=== PATIENT | male | born 1985 | race Caucasian/White ===

== ENCOUNTER 2019-08-29 06:33 | Emergency (ER) | payer BC, SELFPAY ==
[2019-08-29] MEDS ORDERED: MORPHINE 4 MG/ML SYR ONE (07:18)
[2019-08-29] MEDS ORDERED: NA CHLORIDE 0.9% 1,000 ML ONE (07:18)
[2019-08-29] MEDS ORDERED: ONDANSETRON 4 MG/2 ML VIAL ONE (07:18)
[2019-08-29 07:41] LABS: Absolute Lymphocytes (CBC) 2.1 K/uL (0.7-4.9); Basophils % 0.4 % (0-1.3); Lymphocytes % 23.1 % (15.3-44.8); RBC Red Blood Cell Count 5.54 M/uL (4.33-5.43)
[2019-08-29 07:50] LABS: Potassium 3.7 mmol/L (3.5-5.1)
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
[2019-08-29] MEDS ORDERED: AZITHROMYCIN 250 MG TAB ONE (08:28)
[2019-08-29] MEDS ORDERED: KETOROLAC 30 MG/ML INJ ONE (08:35)
[2019-08-29] MEDS ORDERED: DIAZEPAM 5 MG TABLET ONE (08:40)
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
[2019-08-29 14:10] VITALS: O2SAT 99
[2019-08-29 14:11] VITALS: BP 125/87; TEMP 98
== END 2019-08-29 09:25 | disposition home or self-care (01) ==
LOC: ER 06:33
DX: S16.1XXA Strain of muscle, fascia and tendon at neck level, initial encounter (principal); S30.0XXA Contusion of lower back and pelvis, initial encounter; S00.01XA Abrasion of scalp, initial encounter; V48.0XXA Car driver injured in noncollision transport accident in nontraffic accident, initial encounter; Z88.0 Allergy status to penicillin; Z88.2 Allergy status to sulfonamides; F17.220 Nicotine dependence, chewing tobacco, uncomplicated
CPT/HCPCS: 36415; 70450; 71260; 72125; 74177; 80048; 85025; 86850; 86900; 86901; 96361; 96374; 96375; 99285; J2405; J7030; Q9967

== ENCOUNTER 2024-06-29 20:01 | Emergency (ER) | payer OTHER ==
[2024-06-29] MEDS ORDERED: NA CHLORIDE 0.9% 1,000 ML ONE (20:34)
[2024-06-29] MEDS ORDERED: KETOROLAC 30 MG/ML INJ ONE (20:34)
[2024-06-29] MEDS ORDERED: NA CHLORIDE 0.9% 50 ML ONE (20:36)
[2024-06-29] MEDS ORDERED: LIDOCAINE 1% 20 ML MDV ONE (20:36)
[2024-06-29] MEDS ORDERED: CEFTRIAXONE 1000 MG/VIAL ONE (20:36)
[2024-06-29 20:57] LABS: Albumin 3.8 g/dL (3.4-5.0); Anion Gap 9.4 mEq/L (5.0-15.0); Bilirubin Total 0.4 mg/dL (0.2-1.0); Potassium 3.4 mEq/L (3.5-5.1); Protein, Total 7.8 g/dL (6.4-8.2)
[2024-06-29 21:11] LABS: Absolute Basophils 0.1 K/uL (0-0.5); Absolute Eosinophils 0.3 K/uL (0-0.5); Absolute Lymphocytes (CBC) 2.6 K/uL (0.7-4.9); Absolute Neutrophil 7.9 K/uL (1.8-8.0); Basophils % 0.4 % (0-1.3); Eosinophils % 2.5 % (0-4.4); Hematocrit 42.6 % (39.6-49.0); Hemoglobin 14.9 g/dL (13.6-17.9); Lymphocytes % 21.7 % (15.3-44.8); MCH 28.3 pg (27.0-35.0); MCHC 34.9 g/dL (32.0-36.0); MCV 81.2 fL (80-100); MPV 7.4 fL (7.6-11.3); Monocytes % 8.3 % (3.3-12.3); Neutrophils % 67.1 % (41.7-73.7); Nucleated Red Blood Cells % 0.1 % (0-0); Platelets 343 thou/uL (152-406); RBC Red Blood Cell Count 5.25 M/uL (4.33-5.43); Red Cell Distribution Width 13.5 % (12.1-15.2)
--- NOTE | 2024-06-29 22:36 | RAD REPORT ---
EXAMINATION: CT ABDOMEN AND PELVIS WITH CONTRAST CLINICAL INDICATION: Male, 39 years old. [facility] MAIN perianal abscess IV ONLY Bed Name: 5 TECHNIQUE: CT abdomen and pelvis was performed, after the administration of IV contrast, as per [facility] [employer] [facility] [employer] protocol. Axial, sagittal and coronal reconstructions were obtained. One or more of the following dose reduction techniques were used: Automated exposure control, adjustment of the mA and k V according to patient size, and iterative reconstruction. Unless otherwise specified, incidental findings do not require dedicated imaging follow-up. COMPARISON: 11/20/2008 FINDINGS: LOWER CHEST: The visualized lung bases are clear. LIVER: Normal in size and contour. No focal lesion. Gallbladder is contracted limiting evaluation. SPLEEN: Normal size. No focal lesion. PANCREAS: No mass, ductal dilation, or sly-pancreatic fluid. ADRENALS: Normal; no mass. KIDNEYS: Normal size and contour. No hydronephrosis. Urinary bladder appears unremarkable. GASTROINTESTINAL TRACT: No evidence of free air, significant intra-abdominal free fluid, bowel obstru ction or abscess. APPENDIX: Normal appendix. LYMPH NODES: No lymphadenopathy. MUSCULOSKELETAL: No acute or suspicious osseous abnormality. ADDITIONAL FINDINGS: In the midline along the gluteal cleft, and ovoid fluid collection measuring 3.0 x 2.2 cm is noted, with some adjacent fat stranding. No other suspicious paramidline soft tissue tracts. IMPRESSION: A 3.0 cm fluid collection with adjacent inflammatory changes is present along the left inferiorly, moreland ggesting a small abscess. No other suspicious soft tissue tracts or abnormal collections identified.
[2024-06-29] MEDS ORDERED: HYDROCODONE/APAP 10/325 TAB ONE (23:05)
--- NOTE | 2024-06-29 23:29 | ER ---
Nurse's Notes [facility] Name: Peter Hernandez Age: 39 yrs Sex: Male : 1985 Arrival Date: 06/29/2024 Time: 20:01 Bed 5 Private MD: Diagnosis: Cutaneous abscess of buttock;New onset diabetes mellitus type 2 with hyperglycemia Presentation: 06/29 20:12 Chief complaint: Patient states: Abscess to "base of tailbone" onset last week. cm10 Coronavirus screen: Client denies travel out of the [place] in the last 14 days. At this time, the client does not indicate any symptoms associated with coronavirus-19. Ebola Screen: Patient denies travel to an Ebola-affected area in the 21 days before illness onset. No symptoms or risks identified at this time. Initial Sepsis Screen: Does the patient meet any 2 criteria? HR > 90 bpm. Yes Does the patient have a suspected source of infection? No. Patient's initial sepsis screen is negative. Risk Assessment: Do you want to hurt yourself or someone else? Patient reports no desire to harm self or others. Onset of symptoms was June 29, 2024. 20:12 Method Of Arrival: Ambulatory cm10 20:12 Acuity: KARSTEN 4 cm10 Triage Assessment: 20:13 General: Appears in no apparent distress. comfortable, Behavior is calm, cooperative. cm10 Neuro: No deficits noted. Level of Consciousness is awake, alert, obeys commands, Oriented to person, place, time, situation, Appropriate for age. Respiratory: No deficits noted. Airway is patent Respiratory effort is even, unlabored, Respiratory pattern is regular, symmetrical. Historical: - Allergies: 20:13 PENICILLINS; cm10 20:13 Sulfa (Sulfonamide Antibiotics); cm10 - Home Meds: 20:13 None [Active]; cm10 - PMHx: 20:13 Asthma; cm10 - PSHx: 20:13 None; cm10 - Immunization history:: Adult Immunizations up to date. - Infectious Disease History:: Denies. - Social history:: Smoking status: Patient reports the use of cigarette tobacco products, denies chronic smoking, but will smoke occasionally, Reported history of juuling and/or vaping. - Family history:: not pertinent. Screenin:35 [facility] ED Fall Risk Assessment (Adult) History of falling in the last 3 months, dd2 including since admission No falls in past 3 months (0 pts) Confusion or Disorientation No (0 pts) Intoxicated or Sedated No (0 pts) Impaired Gait No (0 pts) Mobility Assist Device Used No (0 pt) Altered Elimination No (0 pt) Score/Fall Risk Level 0 - 2 = Low Risk Oriented to surroundings, Maintained a safe environment, Hourly rounding (assess needs \\T\\ fall precautionary measures) done. Abuse screen: Denies threats or abuse. Nutritional screening: No deficits noted. Tuberculosis screening: No symptoms or risk factors identified. Assessment: 20:35 General: Appears in no apparent distress. Behavior is calm, cooperative, appropriate dd2 for age. Pain: Complains of pain in gluteal cleft Pain currently is 7 out of 10 on a pain scale. Neuro: No deficits noted. Level of Consciousness is awake, alert, obeys commands, Oriented to person, place, time, situation, Appropriate for age. Cardiovascular: No deficits noted. Patient's skin is warm and dry. Respiratory: No deficits noted. Airway is patent Respiratory effort is even, unlabored, Respiratory pattern is regular, symmetrical. GI: No deficits noted. No signs and/or symptoms were reported involving the gastrointestinal system. Abdomen is non-distended. : No deficits noted. No signs and/or symptoms were reported regarding the genitourinary system. EENT: No deficits noted. No signs and/or symptoms were reported regarding the EENT system. Derm: Wound noted gluteal cleft Wound is TENDER, EDEMA NOTED Abscess located on gluteal cleft. Musculoskeletal: No deficits noted. No signs and/or symptoms reported regarding the musculoskeletal system. 22:19 Reassessment: Patient appears in no apparent distress at this time. No changes from al5 previously documented assessment. Patient and/or family updated on plan of care and expected duration. Pain level reassessed. Patient is alert, oriented x 3, equal unlabored respirations, skin warm/dry/pink. Vital Signs: 20:12 BP 133 / 88; Pulse 102; Resp 17; Temp 99(O); Pulse Ox 98% on R/A; Weight 113.4 kg; cm10 Height 5 ft. 10 in. ; Pain 7/10; 20:35 BP 125 / 76; Pulse 102; Resp 16; Pulse Ox 96% ; dd2 21:00 BP 129 / 84; Pulse 99; Resp 18; Pulse Ox 97% on R/A; al5 21:30 BP 125 / 77; Pulse 97; Resp 18; Pulse Ox 97% on R/A; al5 22:00 BP 125 / 75; Pulse 92; Resp 18; Pulse Ox 97% on R/A; al5 22:30 BP 119 / 75; Pulse 97; Resp 18; Pulse Ox 97% on R/A; al5 20:12 Body Mass Index 35.87 (113.40 kg, 177.8 cm) cm10 20:12 Pain Scale: Adult cm10 [employer] Coma Score: 06/30 20:52 Eye Response: spontaneous(4). Motor Response: obeys commands(6). Verbal Response: sp4 oriented(5). Total: 15. ED Course: 06/29 20:03 Patient arrived in ED. im 20:04 Allen Garcia MD is Attending Physician. sp4 20:13 Triage completed. cm10 20:13 Arm band placed on Patient placed in an exam room, on a stretcher. cm10 20:19 GERRY BOWLES, RN is Primary Nurse. dd2 20:34 CBC with Diff Sent. dd2 20:34 CMP Sent. dd2 20:35 Patient has correct armband on for positive identification. Bed in low position. Call dd2 light in reach. Side rails up X 1. Provided Education on: CALL LIGHT, MEDICATIONS, PROCEDURES. Client placed on continuous cardiac and pulse oximetry monitoring. NIBP monitoring applied. Door closed. Pillow given. Verbal reassurance given. 20:35 Initial lab(s) drawn, by me, sent to lab. Inserted saline lock: 20 gauge in right dd2 antecubital area, using aseptic technique. Blood collected. Flushed with 10 mL NS. 22:01 CT Abd/Pelvis - IV Contrast Only In Process Unspecified. EDMS 23:27 Rocky Woods MD is Referral Physician. sp4 23:28 Nikolas Aguiar MD is Referral Physician. sp4 23:50 Assist provider with I \\T\\ D: of an abscess on left pilonidal cyst Wound packed. iodoform al5 gauze, Dressing with 4X4s, tape Patient tolerated well. IV discontinued, intact, bleeding controlled, No redness/swelling at site. Pressure dressing applied. Administered Medications: 20:45 Drug: NS 0.9% IV 1000 ml IV at 1 bolus Per protocol; 1000 mL bolus Route: IV; Rate: 1 al5 bolus; Site: right antecubital; 23:44 Follow up: Response: No adverse reaction; IV Status: Completed infusion; IV Intake: al5 1000ml 20:45 Drug: Ketorolac IVP 30 mg IVP once Route: IVP; Site: right antecubital; al5 23:36 Follow up: Response: No adverse reaction; Pain is unchanged, physician notified al5 20:46 Drug: Rocephin - Rocephin (cefTRIAXone) IVPB 1 grams IVPB once over 30 mins; (mix in 50 al5 mL NS) Route: IVPB; Infused Over: 30 mins; Site: right antecubital; 23:43 Follow up: Response: No adverse reaction; IV Status: Completed infusion; IV Intake: 37gphs5 23:09 Drug: HYDROcodone-acetaminophen PO 10 mg-325 mg 1 tabs PO once Route: PO; al5 23:36 Follow up: Response: No adverse reaction; Pain is decreased al5 23:10 Drug: Lidocaine Infiltration (1 %) 40 ml 20 ml Infiltration once; to bedside {Note: al5 given by md.} Volume: 20 ml; Route: Infiltration; 23:44 Follow up: Response: No adverse reaction al5 Medication: 20:35 VIS not applicable for this client. dd2 Intake: 23:43 IV: 50ml; Total: 50ml. al5 23:44 IV: 1000ml; Total: 1050ml. al5 Outcome: 23:29 Discharge ordered by . sp4 23:50 Discharged to home ambulatory, with significant other, al5 23:50 Condition: good 23:50 Discharge instructions given to patient, significant other, Instructed on discharge instructions, follow up and referral plans. medication usage, Demonstrated understanding of instructions, follow-up care, medications, Prescriptions given X 4, 23:51 Patient left the ED. al5 Signatures: Dispatcher [employer] EDMS Allen Garcia MD MD sp4 Merced Norris Clarissa, RN RN cm10 Karen Matthews RN RN al5 GERRY BOWLES RN RN dd2
--- NOTE | 2024-06-29 23:29 | EDPHYS ---
Physician Documentation [facility] Name: Peter Hernandez Age: 39 yrs Sex: Male : 1985 Arrival Date: 06/29/2024 Time: 20:01 Bed 5 Private MD: ED Physician Allen Garcia HPI: 06/29 23:27 This 39 yrs old Male presents to ER via Ambulatory with complaints of Cyst - sp4 low back. 06/30 20:50 39-year-old male presents with complaint of infected cyst or abscess to his gluteal sp4 cleft. States this started 2 days ago. He has history of pilonidal cyst with incision and drainage. . Historical: - Allergies: 06/29 20:13 PENICILLINS; cm10 20:13 Sulfa (Sulfonamide Antibiotics); cm10 - Home Meds: 20:13 None [Active]; cm10 - PMHx: 20:13 Asthma; cm10 - PSHx: 20:13 None; cm10 - Immunization history:: Adult Immunizations up to date. - Infectious Disease History:: Denies. - Social history:: Smoking status: Patient reports the use of cigarette tobacco products, denies chronic smoking, but will smoke occasionally, Reported history of juuling and/or vaping. - Family history:: not pertinent. ROS: 06/30 20:52 Constitutional: Negative for fever, chills, and weight loss, Positive for gluteal sp4 cleft infected cyst with pain and swelling All other systems are negative, Exam: 20:52 Constitutional: This is a well developed, well nourished patient who is awake, alert, sp4 and in no acute distress. Head/Face: Normocephalic, atraumatic. Eyes: Pupils equal round and reactive to light, extra-ocular motions intact. Lids and lashes normal. Conjunctiva and sclera are not injected. Cornea within normal limits. Periorbital areas with no swelling, redness, or edema. ENT: Nares patent. No nasal discharge, no septal abnormalities noted. Tympanic membranes are normal and external auditory canals are clear. Oropharynx with no redness, swelling, or masses, exudates, or evidence of obstruction, uvula midline. Mucous membranes moist. Neck: Trachea midline, no thyromegaly or masses palpated, and no cervical lymphadenopathy. Supple, full range of motion without nuchal rigidity, or vertebral point tenderness. Chest/axilla: Normal chest wall appearance and motion. Nontender with no deformity. No lesions are appreciated. Cardiovascular: Regular rate and rhythm with a normal S1 and S2. No gallops, murmurs, or rubs. Normal PMI, no JVD. No pulse deficits. Respiratory: Lungs have equal breath sounds bilaterally, clear to auscultation and percussion. No rales, rhonchi or wheezes noted. No increased work of breathing, no retractions or nasal flaring. Abdomen/GI: Soft, with normal bowel sounds. No distension or tympany. No guarding or rebound. No evidence of tenderness throughout. Back: No spinal tenderness. No costovertebral tenderness. There is lower gluteal cleft swelling tenderness and signs of developing abscess Skin: Warm, dry with normal turgor. Normal color with no rashes, no lesions, and no evidence of cellulitis. MS/ Extremity: Pulses equal, no cyanosis. Neurovascular intact. Full, normal range of motion. Neuro: Awake and alert, GCS 15, oriented to person, place, time, and situation. Cranial nerves II-XII grossly intact. Motor strength 5/5 in all extremities. Sensory grossly intact. Psych: Awake, alert, with orientation to person, place and time. Behavior, mood, and affect are within normal limits Vital Signs: 06/29 20:12 BP 133 / 88; Pulse 102; Resp 17; Temp 99(O); Pulse Ox 98% on R/A; Weight 113.4 kg; cm10 Height 5 ft. 10 in. ; Pain 7/10; 20:35 BP 125 / 76; Pulse 102; Resp 16; Pulse Ox 96% ; dd2 21:00 BP 129 / 84; Pulse 99; Resp 18; Pulse Ox 97% on R/A; al5 21:30 BP 125 / 77; Pulse 97; Resp 18; Pulse Ox 97% on R/A; al5 22:00 BP 125 / 75; Pulse 92; Resp 18; Pulse Ox 97% on R/A; al5 22:30 BP 119 / 75; Pulse 97; Resp 18; Pulse Ox 97% on R/A; al5 20:12 Body Mass Index 35.87 (113.40 kg, 177.8 cm) cm10 20:12 Pain Scale: Adult cm10 [facility] Coma Score: 06/30 20:52 Eye Response: spontaneous(4). Motor Response: obeys commands(6). Verbal Response: sp4 oriented(5). Total: 15. Procedures: 20:55 I \T\ D: Incision and drainage was performed for an abscess of the left gluteal cleft - sp4 left side of glutea cleft Prepped with Betadine, Anesthetized with 30 ml's 1% Lidocaine. Incised with #11 blade. Drained moderate amount bloody fluid. Packed with iodoform gauze, Dressing: sterile 4x4 gauze, Foam tape the patient tolerated the procedure well. MDM: 06/29 20:04 Patient medically screened. sp4 06/30 20:54 Differential diagnosis: abscess, allergic reaction, cellulitis, insect bite. Data sp4 reviewed: vital signs, nurses notes. ED course: ED course --abscess was incised but only blood was drained.. Cavity was packed with iodoform gauze. Advised to return in 24 hours for abscess check and repacking.. 20:56 ED course: Patient was advised to return to the emergency room in 24 hours for abscess sp4 check and repacking. Cephalexin was prescribed for 10 days.. 06/29 20:18 Order name: CBC with Diff; Complete Time: 22:20 sp4 06/29 20:18 Order name: CMP; Complete Time: 22:20 4 06/29 20:29 Order name: CT Abd/Pelvis - IV Contrast Only; Complete Time: 23:37 4 06/29 20:18 Order name: IV Saline Lock; Complete Time: 20:34 sp4 06/29 20:18 Order name: Labs collected and sent; Complete Time: 20:34 sp4 06/29 20:19 Order name: Dressing - Wound; Complete Time: 23:44 sp4 06/29 20:19 Order name: Gloves, Sterile; Complete Time: 21:51 sp4 06/29 20:19 Order name: Setup Suture Tray; Complete Time: 21:51 sp4 Administered Medications: 06/29 20:45 Drug: NS 0.9% IV 1000 ml IV at 1 bolus Per protocol; 1000 mL bolus Route: IV; Rate: 1 al5 bolus; Site: right antecubital; 23:44 Follow up: Response: No adverse reaction; IV Status: Completed infusion; IV Intake: al5 1000ml 20:45 Drug: Ketorolac IVP 30 mg IVP once Route: IVP; Site: right antecubital; al5 23:36 Follow up: Response: No adverse reaction; Pain is unchanged, physician notified al5 20:46 Drug: Rocephin - Rocephin (cefTRIAXone) IVPB 1 grams IVPB once over 30 mins; (mix in 50 al5 mL NS) Route: IVPB; Infused Over: 30 mins; Site: right antecubital; 23:43 Follow up: Response: No adverse reaction; IV Status: Completed infusion; IV Intake: [id number] 23:09 Drug: HYDROcodone-acetaminophen PO 10 mg-325 mg 1 tabs PO once Route: PO; al5 23:36 Follow up: Response: No adverse reaction; Pain is decreased al5 23:10 Drug: Lidocaine Infiltration (1 %) 40 ml 20 ml Infiltration once; to bedside {Note: al5 given by md.} Volume: 20 ml; Route: Infiltration; 23:44 Follow up: Response: No adverse reaction al5 Disposition Summary: 06/29/24 23:29 Discharge Ordered Notes: Location: Home sp4 Problem: new sp4 Condition: Stable sp4 Diagnosis - Cutaneous abscess of buttock sp4 - New onset diabetes mellitus type 2 with hyperglycemia sp4 Followup: sp4 - With: Rocky Woods MD - When: 7 - 10 days - Reason: Recheck today's complaints Followup: sp4 - With: Nikolas Aguiar MD - When: 7 - 10 days - Reason: Recheck today's complaints Discharge Instructions: - Discharge Summary Sheet sp4 - Skin Abscess, [id number] sp4 - Diabetes Mellitus and Nutrition, Adult sp4 Forms: - Patient Portal Instructions sp4 Prescriptions: - Cephalexin 500 mg Oral capsule - take 1 capsule ORAL route every 12 hours for 10 days; 20 capsule; Refills: 0, sp4 Product Selection Permitted - Ibuprofen 800 mg Oral Tablet - take 1 tablet ORAL route every 8 hours As needed take with food; 30 tablet; sp4 Refills: 0, Product Selection Permitted - Metformin 1,000 mg Oral tablet - take 1 tablet ORAL route every 12 hours for 30 days; 60 tablet; Refills: 0, sp4 Product Selection Permitted - Tramadol 50 mg Oral tablet - take 1 tablet ORAL route every 8 hours PRN pain; 25 tablet; Refills: 0, Product sp4 Selection Permitted Signatures: Dispatcher [employer] Allen Maravilla MD MD sp4 Jada Woods RN RN cm10 Karen Matthews RN RN al5
[2024-06-30 00:14] VITALS: TEMP 99
[2024-06-30 00:15] VITALS: O2SAT 97
[2024-06-30 00:18] VITALS: BP 119/75
== END 2024-06-29 23:51 | disposition home or self-care (01) ==
LOC: ER 20:01
PROC: 0H98XZZ Drainage of Buttock Skin, External Approach (ICD-10-PCS; principal; 2024-06-29)
DX: L02.31 Cutaneous abscess of buttock (principal); E11.65 Type 2 diabetes mellitus with hyperglycemia
CPT/HCPCS: 96365; 85025; 36415; 80053; 74177; 96375; 99285; 96366; 10060; Q9967; J2001; J7030; J0696

== ENCOUNTER 2024-06-30 21:11 | Emergency (ER) | payer OTHER ==
[2024-06-30] MEDS ORDERED: LIDOCAINE 1% 20 ML MDV ONE (22:11)
--- NOTE | 2024-06-30 22:39 | EDPHYS ---
Physician Documentation [facility] Name: Peter Hernandez Age: 39 yrs Sex: Male : 1985 Arrival Date: 06/30/2024 Time: 21:11 Bed 23 Private MD: ED Physician Allen Garcia HPI: 06/30 21:16 This 39 yrs old Male presents to ER via Unassigned with complaints of Skin sp4 Problem. 07/01 22:16 [age]-year-old male presents with gluteal abscess check and repacking. Patient was here sp4 yesterday for incision and drainage of gluteal cleft abscess, and he was advised to come back for abscess check and repacking . . Historical: - Allergies: 06/30 21:49 PENICILLINS; vc1 21:49 Sulfa (Sulfonamide Antibiotics); vc1 - Home Meds: 21:49 metformin 1,000 mg oral Tablet, Extended Release 24 hr 2 times per day [Active]; vc1 - PMHx: 21:49 Asthma; Diabetes mellitus; vc1 - PSHx: 21:49 None; vc1 - Immunization history:: Client reports having NOT received the Covid vaccine. - Infectious Disease History:: Denies. - Social history:: Smoking status: Patient reports the use of cigarette tobacco products, denies chronic smoking, but will smoke occasionally, Patient reports use of chewing tobacco. Reported history of juuling and/or vaping. - Family history:: not pertinent. ROS: 07/01 22:16 Constitutional: Negative for fever, chills, and weight loss, positive for gluteal sp4 cleft abscess All other systems are negative, Exam: 22:16 Constitutional: This is a well developed, well nourished patient who is awake, alert, sp4 and in no acute distress. Head/Face: Normocephalic, atraumatic. Eyes: Pupils equal round and reactive to light, extra-ocular motions intact. Lids and lashes normal. Conjunctiva and sclera are not injected. Cornea within normal limits. Periorbital areas with no swelling, redness, or edema. ENT: Nares patent. No nasal discharge, no septal abnormalities noted. Tympanic membranes are normal and external auditory canals are clear. Oropharynx with no redness, swelling, or masses, exudates, or evidence of obstruction, uvula midline. Mucous membranes moist. Neck: Trachea midline, no thyromegaly or masses palpated, and no cervical lymphadenopathy. Supple, full range of motion without nuchal rigidity, or vertebral point tenderness. Chest/axilla: Normal chest wall appearance and motion. Nontender with no deformity. No lesions are appreciated. Cardiovascular: Regular rate and rhythm with a normal S1 and S2. No gallops, murmurs, or rubs. Normal PMI, no JVD. No pulse deficits. Respiratory: Lungs have equal breath sounds bilaterally, clear to auscultation and percussion. No rales, rhonchi or wheezes noted. No increased work of breathing, no retractions or nasal flaring. Abdomen/GI: Soft, with normal bowel sounds. No distension or tympany. No guarding or rebound. No evidence of tenderness throughout. Back: No spinal tenderness. No costovertebral tenderness. Gluteal cleft abscess with packing, packing was removed on exam Skin: Warm, dry with normal turgor. Normal color with no rashes, no lesions, and no evidence of cellulitis. MS/ Extremity: Pulses equal, no cyanosis. Neurovascular intact. Full, normal range of motion. Neuro: Awake and alert, GCS 15, oriented to person, place, time, and situation. Cranial nerves II-XII grossly intact. Motor strength 5/5 in all extremities. Sensory grossly intact. Psych: Awake, alert, with orientation to person, place and time. Behavior, mood, and affect are within normal limits Vital Signs: 06/30 21:46 BP 120 / 72; Pulse 82; Resp 17; Temp 97.8; Pulse Ox 100% ; vc1 21:48 Weight 113.4 kg; Height 5 ft. 10 in. ; Pain 6/10; vc1 22:42 BP 124 / 70; Pulse 77; Resp 16 S; Temp 97.4(O); Pulse Ox 100% on R/A; lg3 21:48 Body Mass Index 35.87 (113.40 kg, 177.8 cm) vc1 21:48 Pain Scale: Adult vc1 Procedures: 07/01 22:16 Performed Gluteal cleft abscess repacking. Old packing was removed and small amount of sp4 new packing plain quarter inch packing strip was placed. Sterile dressing was reapplied. Abscess appears to look improved from yesterday.. MDM: 06/30 22:39 Patient medically screened. sp4 07/01 22:16 Differential diagnosis: abscess, allergic reaction, cellulitis, insect bite. Data sp4 reviewed: vital signs, nurses notes. Data reviewed: old medical records. ED course: Is advised to remove packing after 48 hours. Advised daily dressing changes. Advise no work for the next 3 days. Also advised to see general surgeon for complete excision. Patiently patient was found to have diabetes mellitus type 2 yesterday. Advised to have close follow-up with primary care physician for diabetes management.. 06/30 22:14 Order name: Dressing - Wound; Complete Time: 22:34 sp4 06/30 22:14 Order name: Gloves, Sterile; Complete Time: 22:34 sp4 06/30 22:14 Order name: Setup Suture Tray; Complete Time: 22:34 sp4 Administered Medications: 06/30 22:41 Drug: Lidocaine Infiltration (1 %) 20 ml 20 ml Infiltration once; to bedside Volume: 20 lg3 ml; Route: Infiltration; 22:41 Follow up: Response: No adverse reaction lg3 Disposition Summary: 06/30/24 22:39 Discharge Ordered Notes: Daily dressing changes
Take packing strip out in 2 days Location: Home sp4 Problem: new sp4 Symptoms: have improved sp4 Condition: Stable sp4 Diagnosis - Cutaneous abscess of buttock sp4 - Heel cleft abscess status post incision and drainage, encounter for abscess sp4 check and repacking Followup: sp4 - With: Mario Aguilera MD - When: 7 - 10 days - Reason: Recheck today's complaints Followup: sp4 - With: Private Physician - When: 7 - 10 days - Reason: Recheck today's complaints Discharge Instructions: - Form - Return To Work lg3 - Discharge Summary Sheet sp4 - Skin Abscess, [id number] sp4 Forms: - Work release form lg3 - Patient Portal Instructions sp4 Signatures: Kyra Augustine RN RN lg3 Yadi Hollingsworth RN RN vc1 Allen Garcia MD MD sp4
--- NOTE | 2024-06-30 22:39 | ER ---
Nurse's Notes [facility] Name: Peter Hernandez Age: 39 yrs Sex: Male : 1985 Arrival Date: 06/30/2024 Time: 21:11 Bed 23 Private MD: Diagnosis: Cutaneous abscess of buttock;Heel cleft abscess status post incision and drainage, encounter for abscess check and repacking Presentation: 06/30 21:48 Chief complaint: Patient states: f/u with Dr. Garcia for an abscess removal. vc1 Coronavirus screen: Client denies travel out of the [place] in the last 14 days. Ebola Screen: Patient negative for fever greater than or equal to 101.5 degrees Fahrenheit, and additional compatible Ebola Virus Disease symptoms Patient denies exposure to infectious person. Patient denies travel to an Ebola-affected area in the 21 days before illness onset. No symptoms or risks identified at this time. Initial Sepsis Screen: Does the patient meet any 2 criteria? No. Patient's initial sepsis screen is negative. Does the patient have a suspected source of infection? No. Patient's initial sepsis screen is negative. Risk Assessment: Do you want to hurt yourself or someone else? Patient reports no desire to harm self or others. Onset of symptoms is unknown. 21:48 Method Of Arrival: Ambulatory vc1 21:48 Acuity: KARSTEN 4 vc1 Triage Assessment: 21:51 General: Appears in no apparent distress. uncomfortable, Behavior is calm, cooperative, vc1 appropriate for age. Pain: Complains of pain in gluteal cleft Pain does not radiate. Pain currently is 5 out of 10 on a pain scale. EENT: No deficits noted. No signs and/or symptoms were reported regarding the EENT system. Neuro: Level of Consciousness is awake, alert, obeys commands, Oriented to person, place, time, situation, Appropriate for age. Cardiovascular: Capillary refill < 3 seconds Patient's skin is warm and dry. Respiratory: Airway is patent Respiratory effort is even, unlabored, Respiratory pattern is regular, symmetrical. GI: No deficits noted. No signs and/or symptoms were reported involving the gastrointestinal system. : No deficits noted. No signs and/or symptoms were reported regarding the genitourinary system. Derm: Skin is intact, is healthy with good turgor, Skin is dry, Skin is normal, Skin temperature is warm. Musculoskeletal: No deficits noted. No signs and/or symptoms reported regarding the musculoskeletal system. Historical: - Allergies: 21:49 PENICILLINS; vc1 21:49 Sulfa (Sulfonamide Antibiotics); vc1 - Home Meds: 21:49 metformin 1,000 mg oral Tablet, Extended Release 24 hr 2 times per day [Active]; vc1 - PMHx: 21:49 Asthma; Diabetes mellitus; vc1 - PSHx: 21:49 None; vc1 - Immunization history:: Client reports having NOT received the Covid vaccine. - Infectious Disease History:: Denies. - Social history:: Smoking status: Patient reports the use of cigarette tobacco products, denies chronic smoking, but will smoke occasionally, Patient reports use of chewing tobacco. Reported history of juuling and/or vaping. - Family history:: not pertinent. Screenin:46 Abuse screen: Denies threats or abuse. Nutritional screening: No deficits noted. vc1 Tuberculosis screening: No symptoms or risk factors identified. 21:46 [facility] ED Fall Risk Assessment (Adult) History of falling in the last 3 months, vc1 including since admission No falls in past 3 months (0 pts) Confusion or Disorientation No (0 pts) Intoxicated or Sedated No (0 pts) Impaired Gait No (0 pts) Mobility Assist Device Used No (0 pt) Altered Elimination No (0 pt) Score/Fall Risk Level 0 - 2 = Low Risk Oriented to surroundings, Maintained a safe environment, Educated pt \T\ family on fall prevention, incl call for assistance when getting out of bed. Assessment: 21:51 Reassessment: See triage assessment. vc1 22:38 General: Provider removed packing from wound and repacked with plain gauze. vc1 22:42 Reassessment: Patient appears in no apparent distress at this time. Patient and/or vc1 family updated on plan of care and expected duration. Pain level reassessed. Patient is alert, oriented x 3, equal unlabored respirations, skin warm/dry/pink. Patient states symptoms have improved. Vital Signs: 21:46 BP 120 / 72; Pulse 82; Resp 17; Temp 97.8; Pulse Ox 100% ; vc1 21:48 Weight 113.4 kg; Height 5 ft. 10 in. ; Pain 6/10; vc1 22:42 BP 124 / 70; Pulse 77; Resp 16 S; Temp 97.4(O); Pulse Ox 100% on R/A; lg3 21:48 Body Mass Index 35.87 (113.40 kg, 177.8 cm) vc1 21:48 Pain Scale: Adult vc1 ED Course: 21:13 Patient arrived in ED. im 21:15 Allen Garcia MD is Attending Physician. sp4 21:49 Triage completed. vc1 21:51 Arm band placed on left wrist. vc1 21:51 Patient has correct armband on for positive identification. Placed in gown. Bed in low vc1 position. Call light in reach. Adult w/ patient. Pulse ox on. NIBP on. 21:54 Kyra Augustine RN is Primary Nurse. lg3 22:38 Mario Aguilera MD is Referral Physician. sp4 22:39 Patient did not have IV access during this emergency room visit. Recheck of abscess on vc1 gluteal cleft. Wound care: to Surgical I\T\D located on gluteal cleft was cleaned with Betadine, repacked with plain dressing. 22:40 Referral Physician role handed off by Mario Aguilera MD sp4 22:40 No provider procedures requiring assistance completed. vc1 22:42 Provided Education on: wound care. vc1 Administered Medications: 22:41 Drug: Lidocaine Infiltration (1 %) 20 ml 20 ml Infiltration once; to bedside Volume: 20 lg3 ml; Route: Infiltration; 22:41 Follow up: Response: No adverse reaction lg3 Medication: 22:40 VIS not applicable for this client. vc1 Outcome: 22:39 Discharge ordered by . sp4 22:42 Discharged to home ambulatory, lg3 22:42 Condition: stable 22:42 Discharge instructions given to patient, Instructed on discharge instructions, follow up and referral plans. wound care, Demonstrated understanding of instructions, follow-up care, wound care, 22:43 Patient left the ED. lg3 Signatures: Kyra Augustien RN RN lg3 Yadi Hollingsworth RN RN vc1 Allen Garcia MD MD sp4 Merced Norris im
[2024-06-30 22:59] VITALS: O2SAT 100
[2024-06-30 23:02] VITALS: BP 124/70; TEMP 97.4
== END 2024-06-30 22:43 | disposition home or self-care (01) ==
LOC: ER 21:11
DX: Z48.01 Encounter for change or removal of surgical wound dressing (principal); L02.31 Cutaneous abscess of buttock
CPT/HCPCS: 99284; J2001